=== PATIENT | female | born 1980 ===

== ENCOUNTER 2025-01-08 08:57 | Emergency (ER) | payer SELFPAY ==
[2025-01-08 09:00] VITALS: BP 149/85; PULSE 99; RESP 18; TEMP 36.6; O2SAT 97
== END 2025-01-08 09:57 | disposition left against medical advice (07) ==
LOC: ANHED 10:01
DX: S99.911A Unspecified injury of right ankle, initial encounter (principal)
CPT/HCPCS: 99199